=== PATIENT | male | born 1975 ===

== ENCOUNTER 2018-05-29 10:33 | Emergency (ER) | payer SELFPAY ==
[~2018-05-29] VITALS: Ht 177.8 cm; Wt 96.2 kg
--- NOTE | 2018-05-29 11:41 | ED HAND/WRIST INJURY COMPLAINT ---
History of Present Illness General Chief Complaint: Hand or Wrist Injury Stated Complaint: SMASHED FINGER ON FREE WEIGHTS AT GYM Vital Signs & Intake/Output Vital Signs & Intake/Output Vital Signs Date Time Temp Pulse Resp B/P B/P Pulse O2 O2 Flow FiO2 Mean Ox Delivery Rate 05/29 1039 97.3 87 20 150/92 99 Room Air Allergies Coded Allergies: No Known Allergies (05/29/18) Triage Note: C/O SMASHED RIGHT RING FINGER ON FREE WEIGHTS AT GYM. BLEEDING CONTROLLED. APPEARS SLIGHTLY DEFORMED. DECLINES MOTRIN/TYLENOL FOR PAIN. PT GIVEN ICE ALESHIA Past History Travel History Traveled to [place] past 21 day No Psychosocial History What is your primary language Surinamese Tobacco Use: Never used ETOH Use: occasional use Illicit Drug Use: denies illicit drug use Progress Plan of Care: Orders Procedure Date/time Status XRY-FINGERS, RIGHT 05/29 1052 Active Departure Departure Condition: Stable Referrals: Unknown (PCP/Family) Departure Forms: Customer Survey General Discharge Information
--- NOTE | 2018-05-29 11:46 | RADIOLOGY REPORT ---
EXAMINATION: XR FINGER, RIGHT CLINICAL INFORMATION: Pain. Smashed fingers on weight. Bleeding and laceration. COMPARISON: None TECHNIQUE: Frontal view of the right hand and coned-down oblique and lateral views of the of the right fourth digit. FINDINGS: Evaluation is slightly limited due to overlapping weightlifting lobe, which could not be removed prior to imaging. There is a comminuted mildly distracted fracture of the tuft of the distal phalanx of the fourth digit with extensive overlying soft tissue swelling and a small amount of subcutaneous emphysema, consistent with history of open laceration. Remainder of the bony structures is intact. No definite radiopaque foreign body is seen. No significant arthritic changes are noted. IMPRESSION: 1. Comminuted fracture deformity of the distal tuft of the fourth digit. 2. Small amount of subcutaneous emphysema, consistent with patient's history of laceration.
--- NOTE | 2018-05-29 14:05 | ED HAND/WRIST INJURY COMPLAINT ---
History of Present Illness General Chief Complaint: Hand or Wrist Injury Stated Complaint: SMASHED FINGER ON FREE WEIGHTS AT GYM Source: patient Exam Limitations: no limitations Vital Signs & Intake/Output Vital Signs & Intake/Output Vital Signs Date Time Temp Pulse Resp B/P B/P Pulse O2 O2 Flow FiO2 Mean Ox Delivery Rate 05/29 1531 98.2 82 17 144/76 99 Room Air 05/29 1039 97.3 87 20 150/92 99 Room Air Allergies Coded Allergies: No Known Allergies (05/29/18) Reconcile Medications Cephalexin (Keflex) 500 MG CAPSULE 1 CAP PO TID open fracture Triage Note: C/O SMASHED RIGHT RING FINGER ON FREE WEIGHTS AT GYM. BLEEDING CONTROLLED. APPEARS SLIGHTLY DEFORMED. DECLINES MOTRIN/TYLENOL FOR PAIN. PT GIVEN ICE ALESHIA Triage Nurses Notes Reviewed? yes Occurred: just prior to arrival Duration: hour(s): Timing: single episode today Injury Environment: gym Pain/Injury Location: Right: 4th finger. Context: crush HPI: 42yo male presents to ED complaining of crush wounds to right ring finger sustained at gym prior to arrival. Patient states that he dropped a weight on this finger. Patient states he believes the nail has come off completely. Patient had tetanus vaccine last year. Bleeding controlled prior to arrival. Patient reports mild numbness sensation to tip of finger however denies difficulty with movement of his finger range of motion. (Maricarmen Ramirez) Past History Travel History Traveled to [place] past 21 day No Medical History Any Pertinent Medical History? see below for history Surgical History Surgical History: non-contributory Psychosocial History What is your primary language Honduran Tobacco Use: Never used ETOH Use: occasional use Illicit Drug Use: denies illicit drug use Family History Hx Contributory? No (Maricarmen Ramirez) Review of Systems Review of Systems Constitutional: Reports: no symptoms. EENTM: Reports: no symptoms. Respiratory: Reports: no symptoms. Cardiovascular: Reports: no symptoms. GI: Reports: no symptoms. Genitourinary: Reports: no symptoms. Musculoskeletal: Reports: see HPI. Skin: Reports: see HPI. Neurological/Psychological: Reports: no symptoms. Hematologic/Endocrine: Reports: no symptoms. Immunologic/Allergic: Reports: no symptoms. All Other Systems: Reviewed and Negative (Maricarmen Ramirez) Physical Exam Physical Exam General Appearance: well developed/nourished, no apparent distress, alert, awake Head: atraumatic, normal appearance Eyes: Bilateral: normal appearance. Ears, Nose, Throat: hearing grossly normal Neck: normal inspection, supple, full range of motion Cardiovascular/Respiratory: no respiratory distress Back: normal inspection, normal range of motion Wrist Left: normal range of motion, normal inspection Wrist Right: normal range of motion, normal inspection Hand Left: normal inspection, normal range of motion Hand Right: fourth finger: nail avulsion, 4 less than 1 cm lacerations to distal finger, range of motion intact, sensation intact Neurologic/Tendon: normal sensation, normal motor functions, normal tendon functions Skin: see lacerations as mentioned above (Caron NAPIER,Maricarmen Lopez) Progress Differential Diagnosis: fracture, sprain, laceration, nail avulsion, hematoma Plan of Care: Current Medications Sig/Nalini Start time Last Medication Dose Stop Time Status Admin Lidocaine 20 ML ONCE ONE 05/29 1415 UNVr (Lidocaine 1%) 05/29 1416 Patient was offered nail to be replaced versus pulled today given his nail avulsion. Nail is avulsed bilaterally, for this reason I informed the patient that he may have abnormal nail growth in the future. Patient elects to have nail avulsion reduced into skin and leave nail rather than have it pulled today. This will help nailbed safe and protected while waiting for new nail to grow in. Digital block placed, nail bed inspected following digital block with no evidence of nail bed laceration visualized however blood clot under nail was partially removed by myself. Multiple lacerations closed with total of 9 stitches. X-ray shows tuft fracture, patient placed in finger splint and dressing. He is instructed to follow-up with plastics regarding all findings. He was started on Keflex for open fracture. He was given strict return precautions and educated on signs and symptoms of skin infection. He may return here for suture removal if he does not see a specialist within 7-10 days. Patient agrees with the plan of care. Diagnostic Imaging: Viewed by Me: Radiology Read. Discussed w/RAD: Radiology Read. Radiology Impression: PATIENT: TREVOR MTZ PRESENT AGE: 42 PATIENT ACCOUNT NO: [id number] : 75 LOCATION: [facility] ORDERING PHYSICIAN: Bernabe NAPIER SERVICE DATE: 05/29/18 EXAM TYPE: RAD - XRY-FINGERS, RIGHT EXAMINATION: XR FINGER, RIGHT CLINICAL INFORMATION: Pain. Smashed fingers on weight. Bleeding and laceration. COMPARISON: None TECHNIQUE: Frontal view of the right hand and coned-down oblique and lateral views of the of the right fourth digit. FINDINGS: Evaluation is slightly limited due to overlapping weightlifting lobe, which could not be removed prior to imaging. There is a comminuted mildly distracted fracture of the tuft of the distal phalanx of the fourth digit with extensive overlying soft tissue swelling and a small amount of subcutaneous emphysema, consistent with history of open laceration. Remainder of the bony structures is intact. No definite radiopaque foreign body is seen. No significant arthritic changes are noted. IMPRESSION: 1. Comminuted fracture deformity of the distal tuft of the fourth digit. 2. Small amount of subcutaneous emphysema, consistent with patient's history of laceration. DICTATED BY: Nat Crump MD DATE/TIME DICTATED:05/29/181139 [employer] DISPATCHER:SKIP DATE/TIME TRANSCRIBED:05/29/181139 CONFIDENTIAL, DO NOT COPY WITHOUT APPROPRIATE AUTHORIZATION. <Electronically signed in Other Vendor System> SIGNED BY: Nat Crump MD 05/29/18 1143 (Caron NAPIER,Maricarmen Lopez) Departure Departure Disposition: HOME OR SELF CARE Condition: Stable Clinical Impression Primary Impression: Open fracture of tuft of distal phalanx of finger Secondary Impressions: Laceration, Nail avulsion Referrals: Unknown (PCP/Family) Additional Instructions: Take antibiotics as prescribed. Follow up with hand specialist regarding your broken finger. You will need stitches to be removed in 7-10 days. Wear finger splint until he follow up with the specialist. Return if they have any worsening symptoms or concerns. Monitor the area for infection including redness, swelling, increasing pain, warmth, with any of these symptoms please return for further evaluation. Please note that there might be incidental findings in your evaluation that are unrelated to the current emergency department visit. Please notify your primary care doctor about this emergency department visit in order to obtain and review all of the testing performed so that these incidental findings can be monitored as needed. If you had an x-ray performed, please understand that some fractures may not be seen on the initial set of x-rays. If your symptoms persist you might need a repeat set of x-rays to check for such a fracture. If you had a laceration evaluated, please understand that foreign bodies such as glass or wood may not be visible to the naked eye or on plain x-rays. If the wound becomes red, swollen, increasingly more painful or if there is any drainage from the wound, please have it reevaluated by a physician for the possibility of a retained foreign body. If you're unable to follow up as outlined in the discharge instructions please return to the emergency department. Thank you for choosing the [facility] Emergency Department for your care. It was a pleasure to serve you today. Departure Forms: Customer Survey General Discharge Information Prescriptions: Current Visit Scripts Cephalexin (Keflex) 1 CAP PO TID #21 CAP (Caron NAPIER,Maricarmen Lopez) PA/GROMMET MAN Co-Sign Statement Statement: ED Attending supervision documentation- [] I saw and evaluated the patient. I have also reviewed all the pertinent lab results and diagnostic results. I agree with the findings and the plan of care as documented in the PA's/GROMMET MAN's documentation. [X] I have reviewed the ED Record and agree with the PA's/GROMMET MAN's documentation. [] Additions or exceptions (if any) to the PAs/GROMMET MAN's note and plan are summarized below: [] (Diaz Lindsey DO) Procedures Laceration/Wound Repair Laceration/Wound Repair: Wound Location: RIGHT 4TH DIGIT Wound's Depth, Shape: irregular, nail avulsed, 4 SMALL <1CM LACERATIONS Wound Length (cm): 1 Wound Explored: no foreign body removed, irrigated extensively Irrigated w/ Saline (ccs): 300 Betadine Prep? Yes Anesthesia: digit block Volume Anesthetic (ccs): 5 Wound Debrided: minimal Wound Repaired With: sutures Suture Size/Type: 4:0 Number of Sutures: 9 Sterile Dressing Applied: Yes Splint Applied? Yes Type of Splint Applied: finger Tetanus Status: up to date Progress: Nail avulsion was reduced using forceps, nail return to original location and nail bed. No evidence of nail bed trauma. Several lacerations closed using stitches. Patient tolerated procedure well. He is up-to-date on his tetanus vaccine. (Maricarmen Ramirez)
[2018-05-29] MEDS ORDERED: KEFLEX500 M1 PO (14:15)
[2018-05-29 15:31] VITALS: BP 144/76
== END 2018-05-29 15:43 ==
LOC: ERH 10:33
DX: S62.630B Displaced fracture of distal phalanx of right index finger, initial encounter for open fracture (principal); S61.314A Laceration without foreign body of right ring finger with damage to nail, initial encounter; W23.0XXA Caught, crushed, jammed, or pinched between moving objects, initial encounter; Y93.B3 Activity, free weights; Y92.39 Other specified sports and athletic area as the place of occurrence of the external cause
CPT/HCPCS: 73140-RT; J2001

== ENCOUNTER 2018-06-07 09:50 | Emergency (ER) | payer SELFPAY ==
[~2018-06-07] VITALS: Ht 177.8 cm; Wt 96.2 kg
[~2018-06-07 09:50] MED LIST: KEFLEX500 M1 PO
[2018-06-07 10:14] VITALS: BP 148/90
--- NOTE | 2018-06-07 10:30 | ED HAND/WRIST INJURY COMPLAINT ---
History of Present Illness General Chief Complaint: General Adult Stated Complaint: STAPLE REMOVAL Source: patient Exam Limitations: no limitations Vital Signs & Intake/Output Vital Signs & Intake/Output ED Intake and Output 06/08 0000 06/07 1200 Intake Total Output Total Balance Patient 212 lb Weight Weight Reported by Patient Measurement Method Allergies Coded Allergies: No Known Allergies (05/29/18) Reconcile Medications Cephalexin (Keflex) 500 MG CAPSULE 1 CAP PO TID open fracture Triage Note: PT TO ED FOR RIGHT 4TH FINGER SUTURE REMOVAL. Triage Nurses Notes Reviewed? yes Occurred: last week Duration: week(s): (1), better, gone now Timing: single episode today Injury Environment: home Severity: mild, moderate Severity Numbers: 7 Pain/Injury Location: Right: 4th finger. Context: crush Method of Injury: direct blow HPI: 42-year-old male with no medical history presents for suture removal. He was seen a little over a week ago with laceration to his right fourth digit after a crush injury. He also suffered a fracture to the finger. He has been keeping the area clean and dry change the dressing every 2 days. Denies any redness discharge or fever. His pain is improving. He has been taking antibiotics for the full course. (Mal Taylor) Past History Travel History Traveled to [place] past 21 day No Medical History Any Pertinent Medical History? 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 No (Mal Taylor) Review of Systems Review of Systems Constitutional: Reports: no symptoms. EENTM: Reports: no symptoms. Respiratory: Reports: no symptoms. Cardiovascular: Reports: no symptoms. GI: Reports: no symptoms. Genitourinary: Reports: no symptoms. Musculoskeletal: Reports: joint pain, joint swelling. Skin: Reports: no symptoms. Neurological/Psychological: Reports: no symptoms. Hematologic/Endocrine: Reports: no symptoms. Immunologic/Allergic: Reports: no symptoms. All Other Systems: Reviewed and Negative (Mal Taylor) Physical Exam Physical Exam General Appearance: well developed/nourished, no apparent distress, alert, awake Head: atraumatic, normal appearance Eyes: Bilateral: normal appearance, EOMI. Ears, Nose, Throat: hearing grossly normal Neck: normal inspection, supple, full range of motion Cardiovascular/Respiratory: no respiratory distress Shoulder Left: normal range of motion, normal inspection Shoulder Right: normal range of motion, normal inspection Elbow Left: normal range of motion, normal inspection Elbow Right: normal range of motion, normal inspection Forearm Left: normal range of motion, normal inspection Forearm Right: normal range of motion, normal inspection Wrist Left: normal range of motion, normal inspection Wrist Right: normal range of motion, normal inspection Hand Left: normal inspection, normal range of motion Hand Right: nail injury, evidence of injury, swelling, tender, 4th finger, small subungual hematoma present to rt 4th diigt. there is a well healed lacerationto the distal 4th diigt. no erythema swelling or discharge. n/v supply intact Neurologic/Tendon: normal sensation, normal motor functions, normal tendon functions, responds to pain, no evidence tendon injury, no pulse deficit Skin: intact, normal color, warm/dry (Mal Taylor) Progress Differential Diagnosis: abscess, cellulitis, dislocation, felon, fracture, septic arthritis, sprain, tenosynovitis Plan of Care: Patient is here for suture removal. He also has a finger fracture and small subungual hematoma. The sutures removed without difficulty dressing and splint replaced. Advised patient to continue to change dressing daily where splinted all times follow-up with primary care doctor and orthopedics. Discussed return precautions in detail patient agrees the plan (Mal Taylor) Departure Departure Disposition: HOME OR SELF CARE Condition: Stable Clinical Impression Primary Impression: Visit for suture removal Referrals: Unknown (PCP/Family) Additional Instructions: Keep area clean and dry change dressing once daily. LOOK For signs of infection like redness swelling discharge or pain. After another 2 or 3 days leave the laceration open to air dry. Continue to wear splint. Tylenol ibuprofen for pain. Make a follow-up with your primary care doctor for recheck in a few days return if any concern. Departure Forms: Customer Survey General Discharge Information (Mal Taylor) PA/ACCREDITED LEGAL SECRETARY Co-Sign Statement Statement: ED Attending supervision documentation- [] I saw and evaluated the patient. I have also reviewed all the pertinent lab results and diagnostic results. I agree with the findings and the plan of care as documented in the PA's/ACCREDITED LEGAL SECRETARY's documentation. [x] I have reviewed the ED Record and agree with the PA's/ACCREDITED LEGAL SECRETARY's documentation. [] Additions or exceptions (if any) to the PAs/ACCREDITED LEGAL SECRETARY's note and plan are summarized below: [] (César VERA,Diaz Nunez) ED Attending Observation Initial Observation Note: I have seen and personally examined TREVOR MTZ on 06/08/18 at 1440. I agree with the current emergency department documentation. The disposition (admission or discharge) is uncertain at this time, he needs a period of observation for the following reason(s): The ED Nurse caring for this patient has been personally informed as to what the patient is being observed for. (Redd NAPIER,Mal)
== END 2018-06-07 10:26 ==
LOC: ERH 09:50
DX: Z48.02 Encounter for removal of sutures (principal)